=== PATIENT | female | born 1990 | race Caucasian/White ===

== ENCOUNTER 2017-04-18 21:43 | Emergency (ER) | payer OTHER | END 2017-04-19 03:00 | disposition left against medical advice (07) | LOC: ER1 21:43 | DX: Z53.21 Procedure and treatment not carried out due to patient leaving prior to being seen by health care provider (principal) ==

== ENCOUNTER 2017-04-19 13:31 | Emergency (ER) | payer OTHER | END 2017-04-19 14:26 | disposition home or self-care (01) | LOC: ER1 13:31 | DX: S39.012A Strain of muscle, fascia and tendon of lower back, initial encounter (principal); F17.210 Nicotine dependence, cigarettes, uncomplicated; X58.XXXA Exposure to other specified factors, initial encounter | CPT/HCPCS: 96372; 99283; J1100; J1885 ==

== ENCOUNTER → 2021-08-06 | Outpatient (CLI) | payer OTHER | LOC: HEART 5 10:00 | DX: R00.2 Palpitations (principal); R00.0 Tachycardia, unspecified ==